=== PATIENT | female | born 1980 | race Caucasian/White ===

== ENCOUNTER → 2017-11-28 | Outpatient (CLI) | payer OTHER ==
[~2017-11-28] MED LIST: CETI10CA8 PO; PREN-127 PO
--- NOTE | 2017-11-28 14:25 | RADIOLOGY IMAGING REPORT ---
[place] [facility] [place]i Brewer : 1980 MR: [id number] V: [id number] EXAM DATE: ORDERING PHYSICIAN: NAPOLEON AGEE TECHNOLOGIST: [place] [facility] [place] Patient: Regi Brewer : 1980 Visit/Account:[id number] Date of Sevice: 11/28/2017 OB ANATOMICAL SURVEY HISTORY: Anatomic survey COMPARISON: None. TECHNIQUE: Transabdominal imaging was performed for assessment of the fetus and maternal pelvic s tructures. Transvaginal imaging was not performed. FINDINGS: Intrauterine gestations: One. presentation: Cephalic. heart rate: 139 bpm. Amniotic fluid volume: EVELYNE 11.57 cm; MVP 3.78 cm. Placenta: Anterior. Uterus: Gravid, otherwise grossly unremarkable where visualized. Maternal adnexa/ovaries: Grossly unremarkable, ovaries not visualized. Cervix: Grossly long and closed. Gestational Parameters: BPD: 4.72 cm, 36th percentile HC: 18 cm, 35th percentile AC: 15.46 cm, 46th percentile FL: 3.39 cm, 44th percentile Average ultrasound age (AUA): 20 weeks/ four days Estimated age based on LMP: 20 weeks/ four days Estimated weight (EFW): 365 grams +/- 53 grams Anatomic Survey: , 4-chamber heart, stomach, kidneys, urinary bladder, spine, 3-vessel cord and cord insertion are unr emarkable. Two upper and two lower extremities visualized. Two choroid plexus cysts were identified on the left measuring 6.4 mm and 7.2 mm. profile was limited due to position IMPRESSION: Single viable fetus in cephalic presentation with an estimated gestational age by measurements of 20 weeks and four days. The estimated weight is 365 g. There are two choroid plexus cysts were identified on the left The profile was limited due to position Report Dictated By: Dianna Seo MD at 11/28/2017 2:13 PM Report E-Signed By: Dianna Seo MD at 11/28/2017 2:20 PM WSN:[email or web address]
== END ==
LOC: RAD 08:01
PROVIDERS: ATTEND Student in an Organized Health Care Education/Training Program
DX: Z34.92 Encounter for supervision of normal pregnancy, unspecified, second trimester (principal)

== ENCOUNTER → 2018-01-16 | Outpatient (CLI) | payer OTHER ==
[~2018-01-16] MED LIST changes: +DIPH0.5D12 IM; +FLU60VIA41 IM
[2018-01-16 10:56] LABS: PLATELET COUNT, AUTOMATED 196 K/uL (150-450)
== END ==
LOC: LAB 09:47
PROVIDERS: ATTEND Student in an Organized Health Care Education/Training Program
DX: Z34.92 Encounter for supervision of normal pregnancy, unspecified, second trimester (principal)
CPT/HCPCS: 36415; 82950; 85025

== ENCOUNTER → 2018-02-09 | Outpatient (CLI) | payer OTHER ==
--- NOTE | 2018-02-09 16:56 | RADIOLOGY IMAGING REPORT ---
FACILITY: [facility] PATIENT NAME: Regi Brewer : 1980 MR: [id number] V: [id number] EXAM DATE: ORDERING PHYSICIAN: NAPOLEON AGEE TECHNOLOGIST: Location: [facility] Patient: Regi Brewer : 1980 Visit/Account:[id number] Date of Sevice: 02/09/2018 [facility] OB FOLLOW-UP HISTORY: MATERNAL CARE FOR (SUSPECTED) CNSL MALFORM IN FETUS, UNSP ADDITIONAL HISTORY: None. COMPARISON: OB ultrasound 11/28/2017. TECHNIQUE: Transabdominal imaging was performed for assessment of the fetus and maternal pelvic s tructures. Transvaginal imaging was not performed. FINDINGS: Intrauterine gestations: One. presentation: Cephalic. heart rate: 130 bpm. Amniotic fluid volume: Normal; EVELYNE 14.31 cm; MVP 4.97 cm. Placenta: Anterior and high. Uterus: Gravid, otherwise unremarkable. Maternal adnexa/ovaries: Grossly unremarkable, ovaries not visualized.. Cervix: Grossly long and closed. Gestational Parameters: BPD: 7.62 cm; 30 weeks/ 4 days HC: 29.31 cm; 32 weeks/ 3 days AC: 26.67 cm; 30 weeks/ 6 the days FL: 6.03 cm; 31 weeks/ 3 days appendix Average ultrasound age (AUA): 31 weeks/ 3 days Estimated age based on LMP: 31 weeks/ 0 days Anatomic Survey: The intracranial structures are normal. The previously seen choroid plexus cysts have resolved. The ventricles are normal in appearance.. Estimated weight is 1700 g (+/-248 g). IMPRESSION: 1. Normal survey. The previously seen choroid plexus cysts have resolved. Cranial contents are nor mal. 2. Ultrasound age 31 weeks/3 days consistent with gestational age based on LMP. Gestational age by LMP is 31 weeks/ 0 days with estimated date of delivery 04/13/2018. . Report Dictated By: Akira Whittington at 02/09/2018 4:41 PM Report E-Signed By: Akira Whittington at 02/09/2018 4:52 PM WSN:GEORGE
== END ==
LOC: RAD 08:04
PROVIDERS: ATTEND Student in an Organized Health Care Education/Training Program
DX: O35.0XX0 Maternal care for (suspected) central nervous system malformation in fetus, not applicable or unspecified (principal); Z3A.31 31 weeks gestation of pregnancy

== ENCOUNTER → 2018-03-10 | Outpatient (CLI) | payer OTHER | LOC: LAB 10:59 | PROVIDERS: ATTEND Advanced Practice Midwife | DX: Z02.9 Encounter for administrative examinations, unspecified (principal) ==

== ENCOUNTER → 2018-03-16 | Outpatient (CLI) | payer OTHER | LOC: LAB 08:00 | PROVIDERS: ATTEND Advanced Practice Midwife | DX: Z34.01 Encounter for supervision of normal first pregnancy, first trimester (principal) | CPT/HCPCS: 87081 ==

== ENCOUNTER 2018-04-19 00:59 | Inpatient (IN) | payer OTHER ==
[~2018-04-19] VITALS: Ht 165.1 cm; Wt 83.0 kg
[2018-04-19] MEDS ORDERED: ceFAZolin(*) 2GM/D5W 50ML 50 ML IVPB PRN (01:01)
[2018-04-19] MEDS ORDERED: OXYTOCIN 30 UNIT/D5LR 500 ML 500 ML IV PRN (01:01)
[2018-04-19] MEDS ORDERED: FAMOTIDINE(*) 20MG/50ML PREMIX 50 ML IVPB PRN (01:01)
[2018-04-19] MEDS ORDERED: DLR(*) 1000 ML BAG 1,000 ML IV PRN (01:05)
[2018-04-19] MEDS ORDERED: METOCLOPRAMIDE 10 MG/2 ML SDV IVP PRN (01:05)
[2018-04-19] MEDS ORDERED: FLUSH 10 ML SYR IVP PRN (01:05)
[2018-04-19] MEDS ORDERED: fentaNYL CITR 100 MCG/2 ML AMP IVP PRN (01:05)
[2018-04-19] MEDS ORDERED: LIDOCAINE/SOD BICARB 8.4% SYR SC PRN (01:05)
[2018-04-19] MEDS ORDERED: LIDOCAINE 1% LOCAL 300 MG/30ML INJ PRN (01:05)
[2018-04-19 01:54] VITALS: BP 109/78; Ht 165.1 cm; Wt 83.0 kg
[2018-04-19] MEDS ORDERED: LIDO/EPI 2% MPF 1:200,000 20ML EPI PRN (02:00)
[2018-04-19] MEDS ORDERED: EPIDURAL KEYS XX PRN (02:00)
[2018-04-19] MEDS ORDERED: FENTANYL/ROPIVACAINE 100 ML BAG EPI PRN (02:00)
[2018-04-19] MEDS ORDERED: LIDOCAINE/PF 2% 200MG/10ML AMP 200 MG/10 ML AMPUL EPI PRN (02:00)
[2018-04-19] MEDS ORDERED: BUPIVACAINE 0.5% INJ 30ML VIAL EPI PRN (02:00)
[2018-04-19] MEDS ORDERED: BUPIVACAINE 0.25% MPF INJ EPI PRN (02:00)
[2018-04-19] MEDS ORDERED: fentaNYL CITR 100 MCG/2 ML AMP IT PRN (02:00)
[2018-04-19 02:11] LABS: PLATELET COUNT, AUTOMATED 169 K/uL (150-450)
[2018-04-19] MEDS ORDERED: ePHEDrine 25 MG/5 ML DISP.SYR IVP ONE (02:14)
[2018-04-19] MEDS: LR(*) 1000 ML BAG 1,000 ML IV SCH (02:49)
[2018-04-19] MEDS ORDERED: ePHEDrine 25 MG/5 ML DISP.SYR IVP PRN (02:50)
--- NOTE | 2018-04-19 03:04 | History & Physical ---
History of Present Illness Age of Patient: 38 : 2 Para or TPAL: 1 EDC per LMP: Apr 13, 2018 Estimated Gestational Age: 40.6 Chief Complaint Pt reports contractions began early evening 04/18/18 but became strong at about 2030 with difficulty to talk through. +FM, no LOF, but some bloody mucus. She feels the contractions low in her abdomen and "it feels like a band." She denies AVENDANO, vision changes, and RUQ pain. She feels she is coping well, breathing through contractions and using visualization. She plans for an epidural if she can not tolerate the pain. Her is at the bedside and appears very supportive. History Patient's Blood Type: A Positive Rubella Status: Immune Group B Strep Screen: Negative Allergies: Coded Allergies: No Known Drug Allergies (Unverified , 10/04/17) Family History: Blood clots MGM PGM FH: asthma BROTHER OR SISTER FH: hypertension FATHER FH: thyroid condition MOTHER (BENY'S) Med Rec Home Meds Reported Medications Vits W-Ca,Fe,Fa(<1MG) ( VITAMINS) 1 Each Tablet, 1 EACH PO DAILY, TAB 10/04/17 Review of Systems Constitutional: No Fever Eyes: No Vision Change, No Photophobia Cardiovascular: No Chest Pain Respiratory: No Shortness of Breath Gastrointestinal: No Nausea, No Vomiting, No Diarrhea Genitourinary: No Dysuria Musculoskeletal: Pain (contraction pain) Exam General Exam Vital Signs Vital Signs Date Time Temp Pulse Resp B/P (MAP) Pulse Ox O2 Delivery O2 Flow Rate FiO2 04/19/18 01:54 98.2 111 18 109/78 (88) 94 Room Air General Apperance: Alert/Awake/No Acute Distress Neuro: No Gross deficits Eyes: Normal Extraocular Movement & Vison ENT: Normal Cardiovascular: Regular Rate and Rhythm Respiratory: No Respiratory Distress, Clear to Auscultation Abdomen: Gravid - Non-Tender : Normal Musculoskeletal: No Weakness/Pain Extremities: No Cyanosis,Clubbing or Edema Integumentary: Skin Intact without Lesions or Rash Psychological: Alert & Oriented X3, Appropriate Mood & Affect Vaginal Discharge/Fluid?: Bloody Show, Moderate Amount Cervical Dialation: 7 Cervical Effacement (%): 90 Cervical Consistency: Soft Cervical Position: Anterior Station: 0 Presentation: Vertex Uterine Contractions(Q min): 4 Uterine Contraction Strength: Strong UC Resting Tone: Soft Fetus Feeling Movement?: Yes Estimated Weight(grams): 3000 Heart Tones: 120 Heart Tone Variabilty: Moderate FHT Accelerations: Present, 15X15 FHT Decelerations: None FHT Category: I Medical Decision Making Data Points Result Diagram: 04/19/18 0151 Assessment and Plan Hospital Day: 1 ENGINEERING ANALYST Assessment: Stable ENGINEERING ANALYST Plan: Routine Labor Care Problems: (1) Normal labor Onset Date: ~ 04/19/2018 Status: Acute Assessment & Plan: Assessment/Plan: LR is a 38 y.o. at 40w6d wks with an Estimated Date of Delivery: 04/13/18 dated by LMP and first trimester US who arrives to the [facility] in active labor Labor state: Active labor, approaching transition and progressing well from 7-9 cm in 1 hour. Encourage upright positions to facilitate descent. Reviewed wishes with patient and well-being: Category I FHT: intermittent monitoring until epidural then continuous Maternal well-being: VSS, normotensive, afebrile, Membranes intact, BBOW PNL: GBS neg, Type/Rh , rubella immune Pain Management: hydrotherapy, massage, controlled breathing, visualization, aromatherapy and then epidural, comfortable now after epidural Feed: Breast c/b: none Anticipate NSVB , re-evaluate in 1-2 hours or prn ADRIANA WILLINGHAM CNM Apr 19, 2018 03:04
--- NOTE | 2018-04-19 03:14 | Anesthesia OB Pre-Anes Eval ---
History of Present Illness Anesthesia Start Date: Apr 19, 2018 Anesthesia Start Time: 02:15 OB Anesthesia Diagnosis: spontaneous labor Complications: none known EDC: Apr 13, 2018 : 2 Para: 1 Vital Signs: Vital Signs Date Time Temp Pulse Resp B/P (MAP) Pulse Ox O2 Delivery O2 Flow Rate FiO2 04/19/18 01:54 98.2 111 18 109/78 (88) 94 Room Air Pain Ratin Heart Tones: WNL Result Diagram: 04/19/18 0151 Height (Inches): 65.00 Weight (Pounds): 183 BMI (kg/m2): 30 Past Medical History Medical History: no pertinent history Surgical History: other (cystoscope) Previous Anesthesia: general Attended Childbirth Classes?: No Hx Anesthesia Reactions: No Hx Family Anesthesia Reaction: No Home Meds Reported Medications Vits W-Ca,Fe,Fa(<1MG) ( VITAMINS) 1 Each Tablet, 1 EACH PO DAILY, TAB 10/04/17 Allergies: Coded Allergies: No Known Drug Allergies (Unverified , 10/04/17) Anesthesia OB ROS Neurological: No migraines/headaches, No seizures, No neuropathy Eyes ROS: other (glasses) ENT: Denies Tooth caps, Denies Loose teeth, Denies Chipped teeth, Denies Dentures, Denies Bridges, Denies Retainers, Denies Veneers, Denies Implants, Denies Tongue ring Pulmonary: No asthma, No smoker (pks/day/yrs) Airway Class: lll Cardiovascular ROS: No edema, No arrhythmia GI ROS: clear liquids Last Solids Date: Apr 19, 2018 Last Solids Time: 01:00 ROS: No Herpes, No STD(s), No Liver Disease, No Renal Disease Endocrine ROS: No diabetes, No gestational diabetes, No thyroid disorder Musculoskeletal ROS: No low back pain, No low back injury, No scoliosis ASA Classification: 3 Assessment and Plan Anesthesia Plan: CSE Assessment Past Medical, Surgical, Family and Obstetric Histories reviewed. Please see ACOG chart. Epidural anesthesia risks, complications and benefits explained to patient's satisfaction for labor and vaginal delivery and/or section. General anesthesia risks and benefits explained to patient's satisfaction. Pt. states she ate an apple, cashews and yogurt at 1 am before coming into [facility]. Attempted to review last epidural with pt., no problems noted. Questions invited none asked. ZACHARY CHRIS CRNA Apr 19, 2018 03:14
--- NOTE | 2018-04-19 03:24 | Procedure Note ---
Anesthetic Placement Note Anesthesia Plan: CSE Permit for Anesthesia Signed: Yes Anesthesia Technique: Patient Sitting Anesthesia Prep: Chlorhexidine Interspace: L 3-4 Local Anesthetic: 1% Lidocaine, 25 Gauge Needle Amount Local - cc's: 2 Anesthesia Needle: 17g Touhy/Schliff Anesthesia Attempts: 1 Loss of Resistance: Air Depth of MIRIAM (cm): 4 Epidural Needle Placement: No CSF, No Blood, No Parasthesia Intrathecal Needle: 27 Gauge Pencan Cerebral Spinal Fluid: Yes, Clear Catheter Insertion (cm): 7 Catheter Type: Mckeon - Spring Wound Epidural Dressing: Tegaderm, Tape, Adhesive [place] Anesthesia Tray: Lot Number ([id number]), Expiration Date (2019-02-03), Reference Number ([id number]) Anesthesia Medications: Intrathecal Dose: mcg Fentanyl (15), mg Marcaine MPF (1.75 mg), Time (0233) Epidural Test Dose: 1.5 Lido/Epi (1:200,000), Dose - mL (2), Time (0253), Negative Epidural Loading Dose: 0.2% Ropivicaine, With Fentanyl 2mcg/ml, Dose - ml (5), Time (0253) Epidural Infusion: 0.2% Ropivicaine, With Fentanyl 2mcg/ml, Start Time: Epidural Pump Setting: Bolus Dose - mL (5), Lockout - Minutes (20), Maintenance Rate - mL/hr (6), Maximum per Hour - mL (21) Complications: None Comment: Pt. having difficult time deciding whether or not to have epidural. After returning to bed, she was rechecked by CNMW, found to be 9 cms. Assisted to sitting position and attempted to maintain position. Repositioning required. No CSF from epidural needle noted. She became comfortable within 5 minutes of CSE. ZACHARY CHRIS CRNA Apr 19, 2018 03:24
--- NOTE | 2018-04-19 05:25 | Anesthesia Progress Note ---
Progress/Maintenance Anesthesia Note Date: Apr 19, 2018 Anesthesia Note Time: 05:20 Pain Intensity: 0 Pump: Off Sensory Level: T-12 Motor Level: Bending Knees-Bilateral Dilatation: 10 Position: Semi-Fowlers Drug Bolus: 0.5% Marcaine (5), Other (85 mcgs) Assessment and Plan Assessment Pt. was able to push very well. Excellent tolerance of delivery and repair work. Empty syringe attached to epidural catheter and RN agrees to remove epidural catheter with ambulation. Patient instructed the first ambulation is to be with help of nursing staff. Instructed to preform deep knee bends at bedside before walking. Anesthesia Stop Day: Apr 19, 2018 Anesthesia Stop Time: 05:20 ZACHARY CHRIS CRNA Apr 19, 2018 05:25
--- NOTE | 2018-04-19 06:10 | OB Delivery Note ---
Delivery Note Vaginal Delivery Type: Spont. Vaginal Delivery Delivery Date: Apr 19, 2018 Delivery Time: 05:10 Estimated Gestational Age(wks): 40.6 Delivery Anesthesia: Epidural Sex: Female [place] Apgars: 1 Minute, 5 Minute Repair Needed: Laceration, Vaginal, 2nd Degree Delivery Complications: Other (left compound hand) Notes: Pt was admitted to the family care unit at 04/19/18 @ 0115 in active labor. Cervical exam on admission was 7/90/0 She had SROM on 02/16/19 at 0436, during pushing for moderate amount of clear fluid. Pt was GBS negative. FHR was CAT I primarily throughout first stage. Pt utilized non-pharmacological pain methods primarily for pain management, and then received an epidural at 9cm. Pt was completely dilated on 02/16/19 at 0415 and pt began pushing at 0430. At 0510 pt had a NSVB of live female infant weighing 3292g. The head delivered spontaneously in the OA position and restituted AYLA with no nuchal cord, but a left compound hand was noted. The anterior shoulder was delivered a traumatically and the posterior shoulder followed. Body delivered easily. Face was wiped with nose and bulb suction and then placed on the maternal abdomen. The was dried and stimulated and noted to have a spontaneous cry and spontaneous movement of all 4 extremities. At the 5 minute baby was noted to have some grunting with breathing so the cord was clamped X 2 by CNM and cut by patient's spouse. Baby was then taken to the warmer for evaluation after which the PEDS out of town collection clerk was called to come in to evaluate baby for low saturations and oxygen dependence. Mother was in SF position. At 0525 the placenta and membranes delivered spontaneous and intact with a 3 vessel cord after gentle downward traction. 30 units of Pitocin was placed in 500cc IV to firm the uterus and started immediately after placenta delivery. Upon inspection of the perineum a 2nd degree vaginal laceration was noted and repaired in using 3.0 Vicryl under ELEAZAR. Hemostasis observed. EBL 300 with fundus firm with minimal bleeding. Mom and baby were left in stable condition. "I personally examined the patient and there are no unintended foreign objects in the vagina and all lap, sponge and needle counts were accounted for. Inna Augustin CNM was present throughout the entire delivery and Dr. Carltia Rogers was present immediately after delivery and for the laceration repair. Agile Project Manager in Attendence: INNA Hernandez CNM Apr 19, 2018 06:10
[2018-04-19] MEDS ORDERED: BENZOCAINE 20% 60 ML BTL TP PRN (06:15)
[2018-04-19] MEDS ORDERED: HYDROCORTISONE 2.5% CR 30GM TB PR PRN (06:15)
[2018-04-19] MEDS ORDERED: LANOLIN OINT 7 GM TUBE TP PRN (06:15)
[2018-04-19] MEDS ORDERED: MAGNESIUM HYDROXIDE* 30ML UDCP PO PRN (06:15)
[2018-04-19] MEDS ORDERED: ACETAMINOPHEN 325 MG TAB PO PRN (06:15)
[2018-04-19] MEDS: GLYCERIN/WITCH HAZEL LEAF 1 PK TOP PRN (07:25)
[2018-04-19] MEDS: DOCUSATE CALCIUM 240 MG CAP PO SCH ×2 (08:35→22:07)
[2018-04-19] MEDS: IBUPROFEN 800 MG TAB PO SCH ×2 (08:35→16:18)
[2018-04-19 08:50] VITALS: BP 117/57
[2018-04-19] MEDS: APAP/HYDROCODONE 325/7.5 TAB PO PRN ×3 (09:44→23:07)
[2018-04-19 13:02] VITALS: BP 103/58
[2018-04-19 16:15] VITALS: BP 129/67
[2018-04-19 19:15] VITALS: BP 126/65
[2018-04-19 23:08] VITALS: BP 119/56
[2018-04-20] MEDS: IBUPROFEN 800 MG TAB PO SCH ×3 (01:25→18:05)
[2018-04-20 03:20] VITALS: BP 106/52
--- NOTE | 2018-04-20 08:11 | OB/GYN Progress Note ---
OB Subjective Progress Notes Subjective Doing well. Pain controlled with oral medications. Tolerating regular diet. Ambulating. Normal lochia. No preeclampsia symptoms. Difficulties with urinary retention overnight and had 1400cc out with straight cath at midnight. Baby is now in room but still on O2. OB Objective Physical Exam Vital Signs Date Time Temp Pulse Resp B/P (MAP) Pulse Ox O2 Delivery O2 Flow Rate FiO2 04/20/18 03:20 98.6 71 17 106/52 (70) 93 Room Air Intake and Output 04/20/18 07:00 Intake Total 0 ml Output Total 3100 ml Balance -3100 ml Intake Oral 0 ml Output Urine Total 3100 ml # Voids 9 General Appearance: Alert/Awake/No Acute Distress Respiratory: No Respiratory Distress Psychological: Alert & Oriented X3, Appropriate Mood & Affect Result Diagram: 04/20/18 0617 Assessment and Plan Problems: (1) examination following vaginal delivery Assessment & Plan: PPD#1 s/p . Urinary retention. Discussed plan for dunbar catheter if she continues to have retention this morning. ESTHELA KRAMER MD Apr 20, 2018 08:11
[2018-04-20] MEDS: DOCUSATE CALCIUM 240 MG CAP PO SCH ×2 (09:00→21:45)
[2018-04-20 09:30] VITALS: BP 105/66
--- NOTE | 2018-04-20 11:08 | Anesthesia Post Eval Note ---
Anesthesia Post Eval Note Vital Signs Date Time Temp Pulse Resp B/P (MAP) Pulse Ox O2 Delivery O2 Flow Rate FiO2 04/20/18 03:20 98.6 71 17 106/52 (70) 93 Room Air Pt able to participate in Eval: Yes Cardiovascular Status: Satisfactory Respiratory Status: Satisfactory Pain Managment: Satisfactory PO Nausea/Vomiting: Satisfactory Temperature Management: Satisfactory Mental Status: Satisfactory, Alert, Oriented X3 Post-Op Hydration Status: Satisfactory, Tolerating PO Well, Voiding w/o Difficulty (having some post voiding retention) Anesthesia Type: CSE Anesthesia Tolerance: Tolerated procedure well without apparent anesthetic complications. LP site clear, no redness or edema. Denies headache or any residual paresthesia. Vital Signs Stable, Patient comfortable and condition stable. ZACHARY CHRIS CRNA Apr 20, 2018 11:08
--- NOTE | 2018-04-20 11:31 | OB/GYN Progress Note ---
OB Subjective Progress Notes Subjective Pt is feeling well today up and walking around. She has been having some urinary retention and only urinating a small amount at at time. She does not feel when she does not completely empty. is going well, but baby is under the bili lights and also on O2, Baby is at the bedside now, but wasn't until 2 230 last night. Her bleeding is moderate and only cramping when she is . She denies AVENDANO, vision changes, or RUQ pain. GI: POS Flatus; NEG Nausea, NEG Vomiting, NEG Bowel Movement : Voiding Well (PVR is high every time, so dunbar will be placed. ), Vaginal Bleeding, Moderate Pain: Mild, Tolerating PO Pain Meds Neurological: No Headache Eyes: No Visual Disturbances OB Objective Physical Exam Vital Signs Date Time Temp Pulse Resp B/P (MAP) Pulse Ox O2 Delivery O2 Flow Rate FiO2 04/20/18 03:20 98.6 71 17 106/52 (70) 93 Room Air Intake and Output 04/20/18 07:00 Intake Total 240 ml Output Total 3100 ml Balance -2860 ml Intake Oral 240 ml Output Urine Total 3100 ml # Voids 9 General Appearance: Alert/Awake/No Acute Distress Neurological: No Gross deficits Eyes: Normal Extraocular Movement & Vison Respiratory: No Respiratory Distress Abdomen: RUQ Non-Tender, Fundus Firm, Bowel Sounds Present : Normal Musculoskeletal: No Weakness/Pain Extremities: No Cyanosis,Clubbing or Edema Integumentary: Skin Intact without Lesions or Rash Psychological: Alert & Oriented X3, Appropriate Mood & Affect Result Diagram: 04/20/18 0617 Assessment and Plan Hospital Day: 1 NUT ORCHARDIST Assessment: Stable NUT ORCHARDIST Plan: Routine Post- Care, Discharge Home Tomorrow Problems: (1) examination following vaginal delivery Status: Acute Assessment & Plan: PPD#1 s/p NSVB of a viable female . Pt is having some urinary retention since so, plan for Dunbar catheter after PVR with bladder scan was over 300. Will plan to keep dunbar in place until 0600 04/21 and then dc to see if pt can void. If pt is able to void will DC tomorrow. (2) (normal spontaneous vaginal delivery) ADRIANA WILLINGHAM CNM Apr 20, 2018 11:31
[2018-04-20 14:30] VITALS: BP 94/54
[2018-04-20] MEDS: GLYCERIN/WITCH HAZEL LEAF 1 PK TOP PRN (18:01)
[2018-04-20 19:50] VITALS: BP 119/76
[2018-04-21] MEDS: IBUPROFEN 800 MG TAB PO SCH ×3 (01:28→17:19)
[2018-04-21 02:30] VITALS: BP 119/74
--- NOTE | 2018-04-21 08:37 | OB/GYN Discharge Summary ---
Discharge Summary Reason for Hosp/Final Diag: (1) examination following vaginal delivery Status: Acute Hospital Course & Plan: PPD#2 s/p uncomplicated NSVB of a viable female infant with a second degree laceration. Pt is having some urinary retention since so she had a dunbar from mid morning yesterday from this am at 0600 when it was remove. If she is not able to void on her own she understands that she may need a dunbar until Tuesday. The baby's bili is still elevated so peds would like a recheck at 4pm this evening. She is doing well with and has a good latch. She is having minimal pain with which she is tolerating with ibuprofen. Denies AVENDANO, vision changes, RUQ pain and bilateral calf pain and tenderness. This afternoon pt is voiding well on her own with adequate output. (2) (normal spontaneous vaginal delivery) Status: Resolved Lates Vital Signs Vital Signs Date Time Temp Pulse Resp B/P (MAP) Pulse Ox O2 Delivery O2 Flow Rate FiO2 04/21/18 02:30 98.4 66 18 119/74 (89) 92 Room Air Weight (Pounds): 183 Result Diagram: 04/20/18 0617 Condition: Improved Discharge: Home, Self Snf Meds Reported Medications Vits W-Ca,Fe,Fa(<1MG) ( VITAMINS) 1 Each Tablet, 1 EACH PO DAILY, TAB 10/04/17 Follow up Referrals: PUBLIC SAFETY TELECOMMUNICATOR @ [facility] [place] with ADRIANA WILLINGHAM CNM Follow up in: 2 wks PO Discharge Diet: As Tolerates Discharge Activity: As Tolerates, Pelvic Rest Special Instructions: Please take these next 2 weeks to rest and get to know your baby. You deserve this time as you have worked very hard these past 9 months growing your baby! Be kind and gentle to yourself and know that eventhough this is your second baby it takes time to get adjusted. You can 800mg ibuprofen every 8 hours for pain. Thank you so much forletting me be a part of this journey and know that it does not end. I am here for you as you in the period too! I will see you in 2 weeks. Your Laborer [place], ADRIANA Deng CNM Apr 21, 2018 08:37
[2018-04-21] MEDS: DOCUSATE CALCIUM 240 MG CAP PO SCH (09:00)
[2018-04-21 10:05] VITALS: BP 121/55
== END 2018-04-21 18:05 | disposition home or self-care (01) | DRG 807 ==
LOC: OB 00:59 → INTOOBSV 00:59 → UNDOADMOB 00:59 → OBSVTOIN 00:59 → OB 08:30
PROVIDERS: ADMIT Obstetrics & Gynecology; ATTEND Obstetrics & Gynecology
PROC: 10E0XZZ Delivery of Products of Conception, External Approach (ICD-10-PCS; principal; 2018-04-19)
PROC: 0KQM0ZZ Repair Perineum Muscle, Open Approach (ICD-10-PCS; 2018-04-19)
DX: O32.6XX0 Maternal care for compound presentation, not applicable or unspecified (principal); Z37.0 Single live birth; Z3A.40 40 weeks gestation of pregnancy; R33.9 Retention of urine, unspecified; O70.1 Second degree perineal laceration during delivery
CPT/HCPCS: 36415; 85025; 85027; 86850; 86900; 86901; J7120